=== PATIENT | male | born 2000 | race Caucasian/White ===

== ENCOUNTER 2018-11-25 08:26 | Emergency (ER) | payer MEDICAID ==
[~2018-11-25] VITALS: Ht 175.3 cm; Wt 89.8 kg
[2018-11-25 08:31] VITALS: BP 141/93; Ht 175.3 cm; Wt 89.8 kg
== END 2018-11-25 09:02 | disposition home or self-care (01) ==
LOC: ED 08:26
DX: L73.9 Follicular disorder, unspecified (principal)